=== PATIENT | male | born 1965 | race Caucasian/White ===

== ENCOUNTER → 2023-06-25 | Outpatient (CLI) | payer OTHER, SELFPAY ==
--- NOTE | 2023-06-25 09:44 | ECHOD_ITS ---
Reason For Study: OTHER PREMATURE DEPOLARIZATION Procedure This was a 2D Doppler, Color Flow transthoracic echocardiogram. Exam performed in department. Left Ventricle Normal LV size. The estimated ejection fraction is 65 %. No regional wall motion abnormalities noted. Right Ventricle Normal RV size. Normal systolic function. Atria Normal left atrium. Normal right atrium. Mitral Valve Normal mitral valve. Mild (1+) eccentric mitral valve insufficiency. Tricuspid Valve Normal tricuspid valve. Aortic Valve Normal aortic valve. Pulmonic Valve Normal pulmonic valve. Great Vessels Normal aortic root. The pulmonary artery is normal size. Normal inferior vena cava. Pericardium/Pleural No pericardial effusion. MMode/2D Measurements & Calculations LVIDd: 4.9 cm IVSd: 1.2 cm Ao root diam: 4.0 cm LVIDs: 3.1 cm LVPWd: 1.0 cm RVDd: 3.5 cm FS: 37.3 % LAV(MOD-bp): 70.4 ml LVAd ap4: 26.8 cm2 SV(MOD-sp4): 37.8 ml LAV(MOD-bp) Indexed: 30.4 ml/m2 LVLd ap4: 8.5 cm LAV(MOD-sp2): 89.4 ml EDV(MOD-sp4): 69.1 ml LAV(MOD-sp4): 54.2 ml EDV(sp4-el): 71.9 ml LVAs ap4: 15.7 cm2 LVLs ap4: 6.9 cm ESV(MOD-sp4): 31.3 ml ESV(sp4-el): 30.3 ml EF(MOD-sp4): 54.7 % EF(sp4-el): 57.8 % SV(sp4-el): 41.6 ml LA A4 area: 20.3 cm2 LA dimension(2D): 4.2 cm RA A4 area: 15.2 cm2 TAPSE: 2.0 cm Time Measurements MV dec time: 0.16 sec Doppler Measurements & Calculations MV E max rachid: 69.6 cm/sec Lat Peak E' Rachid: 10.1 cm/sec Med Peak E' Rachid: 7.0 cm/sec MV A max rachid: 57.7 cm/sec E/E' lat: 6.9 E/E' med: 9.9 MV E/A: 1.2 MV V2 max: 70.9 cm/sec Ao V2 max: 110.5 cm/sec MV max P.0 mmHg MV dec slope: 458.3 cm/sec2 Ao max P.9 mmHg MV V2 mean: 47.1 cm/sec Ao V2 mean: 82.2 cm/sec MV mean P.00 mmHg Ao mean P.0 mmHg MV V2 VTI: 20.1 cm Ao V2 VTI: 24.8 cm AV (velocity ratio): 0.86 LV V1 max: 97.7 cm/sec PA V2 max: 115.3 cm/sec LV V1 max P.8 mmHg PA V2 mean: 77.5 cm/sec LV V1 mean P.1 mmHg LV V1 mean: 67.8 cm/sec LV V1 VTI: 21.3 cm ECHO/Echo Complete Interpretation Summary Normal LV size. The estimated ejection fraction is 65 %. No regional wall motion abnormalities noted. Mild (1+) eccentric mitral valve insufficiency. Ordering Physician: Paul Staples Referring Physician: Paul Staples Performed By: Mari Snyder RCS
[2023-06-25 11:00] LABS: ALB/GLOB Ratio 0.9 RATIO (0.9-2.4); AST(SGOT) 18 U/L (15-37); Alanine Aminotransfer ALT/SGPT 35 U/L (16-61); Albumin, Serum 3.6 g/dL (3.2-5.0); Alkaline Phosphatase 75 U/L (45-117); Anion Gap 2 (5-15); BUN 16 mg/dL (7-18); BUN/Creat Ratio 20.1 RATIO (10-20); Calcium,Total 8.8 mg/dL (8.5-10.1); Chloride 108 mmol/L (98-107); EST Glomerular Filtration Rate 106 mL/min (>60); Est Glom Filt Rate - Afr Amer 129 mL/min (>60); Glucose 105 mg/dL (74-106); Potassium 4.1 mmol/L (3.5-5.1); Protein, Total 7.6 g/dL (6.4-8.2); Sodium Level 138 mmol/L (136-145)
[2023-06-25 13:28] LABS: Color, Urine Yellow (Yellow); Glucose, Dipstick Normal (Normal); Ketone-Dipstick Negative (Negative); Leukocyte Esterase-Dipstick 25 /ul (Negative); Nitrite-Dipstick Negative (Negative); Occult Blood-Urine 10 /ul (Negative); Protein-Dipstick Negative (Negative); Urine Bilirubin Dipstick Negative (Negative); Urine Clarity Clear (Clear); Urine Urobilinogen Normal (Normal)
== END | disposition home or self-care (01) ==
PROVIDERS: PCP Internal Medicine; Referring Provider Chiropractor; Visit Provider Chiropractor
DX: I49.49 Other premature depolarization (principal); N20.0 Calculus of kidney
CPT/HCPCS: 36415; 80053; 81002; 93306